=== PATIENT | male | born 1970 | race African-American/Black ===

== ENCOUNTER 2018-09-30 21:38 | Emergency (ER) | payer OTHER ==
[~2018-09-30] VITALS: Ht 175.3 cm; Wt 102.5 kg
[2018-09-30 22:33] LABS: Basophils # (auto) 0.2 uL; Eosinophils # (auto) 0.3 uL; Eosinophils % (auto) 2.2 % (0.0-7.0); Hematocrit 46.9 % (41.0-53.0); Hemoglobin 15.3 g/dL (13.5-17.5); Lymphocytes # (auto) 3.1 uL; Lymphocytes % (auto) 19.9 % (10.0-50.0); Mean Corpuscular Hemoglobin 28.8 pg (28.0-32.0); Mean Corpuscular Hgb Conc. 32.7 g/dL (32.0-36.0); Mean Corpuscular Volume 88.1 fL (80.0-100.0); Monocytes % (auto) 6.2 % (0.0-12.0); Neutrophils % (auto) 70.7 % (37.0-80.0); Platelet Count (auto) 214 10^3/uL (140-450); Red Blood Cells 5.32 10^6/uL (4.5-5.90); Red Cell Distribution Width 14.9 % (11.8-14.3); White Blood Cell 15.6 10^3/uL (4.4-10.8)
[2018-09-30 22:56] LABS: Magnesium 2.2 mg/dL (1.6-2.6)
[2018-09-30 23:01] LABS: Alanine Aminotransferase 36 U/L (16-61); Albumin 3.6 g/dL (3.4-5.0); Alkaline Phosphatase 75 U/L (45-117); Anion Gap 8 (5-15); Aspartate Aminotransferase 19 U/L (15-37); BUN/Creatinine Ratio 10.6; Bilirubin, Total 0.3 mg/dL (0.2-1.0); Blood Urea Nitrogen 13 mg/dL (7-18); Calcium 8.7 mg/dL (8.5-10.1); Carbon Dioxide 22 mmol/L (21-32); Chloride 108 mmol/L (98-107); GFR African American 80 mL/min; GFR Non-African American 66 mL/min; Glucose 179 mg/dL (74-106); Potassium 3.7 mmol/L (3.5-5.1); Sodium 138 mmol/L (136-145)
[2018-10-01] MEDS ORDERED: IOHEXOL 350 MG/ML 100ML IJ ONE (01:20)
[2018-10-01 01:35] VITALS: BP 128/78
== END 2018-10-01 03:53 | disposition home or self-care (01) ==
LOC: ER 22:03
DX: G40.409 Other generalized epilepsy and epileptic syndromes, not intractable, without status epilepticus (principal); I10 Essential (primary) hypertension
CPT/HCPCS: 36415; 71260; 80053; 82542; 83735; 84484; 85025; 93005; 99284; Q9967